=== PATIENT | female | born 2000 | race Caucasian/White ===

== ENCOUNTER 2025-06-27 10:30 | Emergency (ER) | payer MEDICAID ==
[~2025-06-27] VITALS: Ht 165.1 cm; Wt 55.0 kg
[2025-06-27 10:51] VITALS: O2SAT 99
[2025-06-27 13:19] LABS: CLARITY URINE CLEAR (CLEAR); COLOR URINE DARK YELLOW (YELLOW); GLUCOSE URINE NEGATIVE (NEGATIVE); KETONES URINE NEGATIVE (NEGATIVE); LEUKOCYTE ESTERASE URINE 1+ (NEGATIVE); NITRITE URINE POSITIVE (NEGATIVE); OCCULT BLOOD URINE 2+ (NEGATIVE); PH URINE 5.5 (4.5-8.0); PROTEIN URINE 2+ (NEGATIVE); SPECIFIC GRAVITY URINE 1.021 (1.005-1.030); UROBILINOGEN URINE 1.0 E.U./dL (0.2-1.0)
[2025-06-27 13:31] LABS: SQUAMOUS EPITHELIAL CELL URINE 2+ /lpf (RARE/1+)
[2025-06-27 13:32] LABS: WBC URINE 15-25 /hpf (0-2)
[2025-06-27 13:33] LABS: BACTERIA URINE 2+; RBC URINE 50-100 /hpf (0-2)
[2025-06-27] MEDS ORDERED: CEPH500T MT (14:18)
[2025-06-27 14:35] VITALS: BP 110/67; PULSE 80; RESP 14; TEMP 36.9; O2SAT 99
== END 2025-06-27 14:38 | disposition home or self-care (01) ==
LOC: ER 10:30
DX: N39.0 Urinary tract infection, site not specified (principal); Z98.890 Other specified postprocedural states
CPT/HCPCS: 81003; 81025; 87077; 87186; 99283